=== PATIENT | female | born 1955 | race Caucasian/White ===

== ENCOUNTER 2017-05-15 22:36 | Emergency (ER) | payer BC ==
[~2017-05-15] VITALS: Ht 157.5 cm; Wt 57.0 kg
[~2017-05-15 22:36] MED LIST: MULT1CAP57
[2017-05-15 22:46] VITALS: Ht 157.5 cm; Wt 57.0 kg
[2017-05-16 01:53] LABS: ADD SCAN DIFF NO
[2017-05-16 01:55] LABS: BASOPHILS % 0.2 % (0.0-2.0); EOSINOPHILS # 0.1 10^3/ul (0.0-0.5); EOSINOPHILS % 0.8 % (0.0-7.0); HEMATOCRIT 34.4 % (37.0-47.0); HEMOGLOBIN 11.9 g/dl (12.0-16.0); LYMPHOCYTES % 21.6 % (15.0-51.0); MEAN CORPUSCULAR HEMOGLOBIN 30.7 pg (29.0-33.0); MEAN CORPUSCULAR HGB CONC 34.6 g/dl (32.0-37.0); MEAN CORPUSCULAR VOLUME 88.9 fl (82.0-101.0); MEAN PLATELET VOLUME 9.6 fl (7.4-10.4); MONOCYTE # 0.6 10^3/ul (0.3-0.9); MONOCYTES % 6.3 % (0.0-11.0); NEUTROPHIL # 6.5 10^3/ul (1.6-7.5); NEUTROPHILS % 70.8 % (39.0-77.0); PLATELET COUNT 286 10^3/UL (140-415); RED BLOOD COUNT 3.87 10^6/ul (4.20-5.40); RED CELL DISTRIBUTION WIDTH 11.9 % (11.5-14.5); WHITE BLOOD COUNT 9.2 10^3/ul (4.8-10.8)
[2017-05-16] MEDS ORDERED: SOD CHLORIDE 0.9% 1,000 ML IV ONE (02:00)
--- NOTE | 2017-05-16 02:01 | RADRPT ---
PROCEDURE: CT brain without contrast. CLINICAL INDICATION: Syncope. TECHNIQUE: CT scan of the brain was performed on a multi-detector high-resolution CT scanner. Co ntiguous axial images were obtained from the skull base to the vertex without intravenous contrast. Coronal and sagittal reformatted images were also obtained. Images were reviewed on the PACS works tation. One or more of the following dose reduction techniques were used: - Automated exposure control. - Adjustment of the mA and/or kV according to patient size. - Use of iterative reconstruction technique. Exam CTD/vol = 45.01 mGy. Total exam DLP = 720.23 mGy-cm. COMPARISON: None. FINDINGS: The ventricles and cortical sulci are prominent consistent with mild cerebral volume loss. There is a chronic lacunar infarct within the right rucker radiata. There is no mass effect or midline shift . There is no intracranial hemorrhage or abnormal extra-axial collection. The calvarium is intact. There is no evidence of fracture. Visualized paranasal sinuses are clear. The patient is status post right mastoidectomy. IMPRESSION: No acute intracranial abnormality identified. Mild cerebral volume loss. Chronic lacunar infarct within the right rucker radiata. Status post right mastoidectomy. .Evans Mcclain MD, Date Time Electronically viewed and signed by .Evans Mcclain MD, MD on 05/16/2017 02:00 .T/
[2017-05-16 02:16] LABS: CALCIUM 9.2 mg/dl (8.4-10.2); CREATININE 0.54 mg/dl (0.44-1.00); POTASSIUM 4.3 mmol/L (3.5-5.1)
--- NOTE | 2017-05-16 02:24 | ERD ---
ER Documentation Chief Complaint Date/Time DATE: 05/16/17 TIME: 02:22 Chief Complaint passed out while working; hit back of her head; donated blood today HPI This is 61-year-old female who works here in [employer]. The patient says she donated blood before coming to work today. She says she donated blood and came straight here and did not have anything to eat. She says she was getting in the elevator and when she did she became dizzy and passed out. She said she fell back and hit her head on the wall. She said she was unconscious for less than 1 minute. She says she has a mild dull headache now but feels much better. She did not have any chest pain shortness of breath no numbness weakness no focal neurological complaints. ROS All systems reviewed and are negative except as per history of present illness. Medications Home Meds Reported Medications Multivitamins W-Minerals (Multivitamin) 1 Cap Capsule 03/16/11 Allergies Allergies: Coded Allergies: No Known Allergy (Unverified , 10/24/15) PMhx/Soc History of Surgery: Yes (left knee and back surgery) Anesthesia Reaction: No Hx Neurological Disorder: No Hx Respiratory Disorders: No Hx Cardiac Disorders: No Hx Psychiatric Problems: No Hx Miscellaneous Medical Probl: No Hx Alcohol Use: Yes (socially) Hx Substance Use: No Hx Tobacco Use: Yes (socially) Smoking Status: Current some day smoker FmHx Family History: No coronary disease Physical Exam Vitals Vital Signs Date Time Temp Pulse Resp B/P Pulse Ox O2 Delivery O2 Flow Rate FiO2 05/16/17 01:48 75 16 118/75 100 Room Air 05/15/17 22:46 98.3 90 18 121/74 97 Physical Exam Const: Well-developed, well-nourished Head: Hematoma to the vertex of the scalp no laceration, normocephalic Eyes: Normal Conjunctiva, PERRLA, EOMI, normal sclera, no nystagmus ENT: Normal External Ears, Nose and Mouth, moist mucus membranes. Neck: Full range of motion. No meningismus, no lymphadenopathy. Resp: Clear to auscultation bilaterally, no wheezing, rhonchi, rales Cardio: Regular rate and rhythm, no murmurs, S1 S2 present Abd: Soft, non tender x 4, non distended. Normal bowel sounds, no guarding or rebound, no pulsitile abdominal masses or bruits Skin: No petechiae or rashes, no ecchymosis , no maculopapular rash Back: No midline or flank tenderness Ext: No cyanosis, or edema, FROM x 4, normal inspection, neurovascularly intact x 4 Neur: Awake and alert, STR 5/5 x 4, sensation intact x 4, no focal findings, cerebellum intact Psych: Normal Mood and Affect Result Diagram: 05/16/17 0141 05/16/17 0141 Results 24 hrs Laboratory Tests Test 05/16/17 01:41 White Blood Count 9.210^3/ul Red Blood Count 3.8710^6/ul Hemoglobin 11.9g/dl Hematocrit 34.4% Mean Corpuscular Volume 88.9fl Mean Corpuscular Hemoglobin 30.7pg Mean Corpuscular Hemoglobin Concent 34.6g/dl Red Cell Distribution Width 11.9% Platelet Count 98075^3/UL Mean Platelet Volume 9.6fl Neutrophils % 70.8% Lymphocytes % 21.6% Monocytes % 6.3% Eosinophils % 0.8% Basophils % 0.2% Nucleated Red Blood Cells % 0.0/100WBC Neutrophils # 6.510^3/ul Lymphocytes # 2.010^3/ul Monocytes # 0.610^3/ul Eosinophils # 0.110^3/ul Basophils # 0.010^3/ul Nucleated Red Blood Cells # 0.010^3/ul Sodium Level 140mmol/L Potassium Level 4.3mmol/L Chloride Level 104mmol/L Carbon Dioxide Level 27mmol/L Anion Gap 13 Blood Urea Nitrogen 14mg/dl Creatinine 0.54mg/dl Glucose Level 116mg/dl Calcium Level 9.2mg/dl Current Medications Medications (Trade) Dose Ordered Sig/Mel Route PRN Reason Start Time Stop Time Status Last Admin Dose Admin Sodium Chloride (NS) 1,000 ml @ 1,000 mls/hr Q1H ONCE IV 05/16/17 02:00 05/16/17 02:59 05/16/17 02:05 Procedures/MDM PROCEDURE: CT brain without contrast. CLINICAL INDICATION: Syncope. TECHNIQUE: CT scan of the brain was performed on a multi-detector high- resolution CT scanner. Contiguous axial images were obtained from the skull base to the vertex without intravenous contrast. Coronal and sagittal reformatted images were also obtained. Images were reviewed on the PACS workstation. One or more of the following dose reduction techniques were used: - Automated exposure control. - Adjustment of the mA and/or kV according to patient size. - Use of iterative reconstruction technique. Exam CTD/vol = 45.01 mGy. Total exam DLP = 720.23 mGy-cm. COMPARISON: None. FINDINGS: The ventricles and cortical sulci are prominent consistent with mild cerebral volume loss. There is a chronic lacunar infarct within the right rucker radiata. There is no mass effect or midline shift. There is no intracranial hemorrhage or abnormal extra-axial collection. The calvarium is intact. There is no evidence of fracture. Visualized paranasal sinuses are clear. The patient is status post right mastoidectomy. IMPRESSION: No acute intracranial abnormality identified. Mild cerebral volume loss. Chronic lacunar infarct within the right rucker radiata. Status post right mastoidectomy. .Evans Mcclain MD, MD Date Time Electronically viewed and signed by .Evans Mcclain MD, MD on 05/16/2017 02:00 .T/ CC: PARI ESTRADA DO EKG: Rate/Rhythm: Normal Sinus Rhythm,NL intervals QRS, ST, QT: NORMAL AL, QRS, QT] Impression: NORMAL EKG Patient was syncopal due to giving blood before coming to work without eating or having any liquids. Evidence of intracranial damage. She feels well. Will discharge home in stable condition Departure Diagnosis: Primary Impression: Syncope Syncope type: unspecified Qualified Code: R55 - Syncope, unspecified syncope type Condition: Stable Patient Instructions: What Is Syncope? PARI ESTRADA DO May 16, 2017 02:24
[2017-05-16] MEDS ORDERED: VITA100C4 PO (02:35)
[2017-05-16] MEDS ORDERED: ASPI81TA3 PO (02:35)
[2017-05-16] MEDS ORDERED: CYAN100T PO (02:35)
[2017-05-16 02:43] VITALS: BP 118/61; PULSE 81; RESP 16
== END 2017-05-16 02:44 | disposition home or self-care (01) ==
LOC: E/R 22:36
DX: R55 Syncope and collapse (principal); F17.210 Nicotine dependence, cigarettes, uncomplicated
CPT/HCPCS: 36415; 70450; 80048; 85025; 93005; 99285; J7030